=== PATIENT | female | born 1970 | race Caucasian/White ===

== ENCOUNTER 2023-04-29 21:07 | Outpatient (REF) | payer BC, SELFPAY ==
[2023-04-29 21:56] LABS: Anion Gap 10.3 mmol/L (3-11); BUN 16 mg/dL (7-18); CO2 25.7 mmol/L (21.0-32.0); CREATININE 0.8 mg/dL (0.55-1.02); Calcium 9.1 mg/dL (8.5-10.1); Chloride 106 mmol/L (98-107); Glucose 102 mg/dL (74-106); Potassium 3.7 mmol/L (3.5-5.1); Sodium 142 mmol/L (136-145)
== END 2023-04-29 21:08 | disposition home or self-care (01) ==
LOC: NCHCN 21:07
PROVIDERS: Visit Provider Nurse Practitioner Family
DX: I47.10 Supraventricular tachycardia, unspecified (principal)
CPT/HCPCS: 80048

== ENCOUNTER 2023-09-07 08:46 | Day surgery (SDC) | payer BC, SELFPAY ==
--- NOTE | 2023-09-06 11:12 | W.PM.DSUDISC ---
Date of service: 09/07/23 Time of Service: 11:22 Discharge Plan Disposition Patient Disposition: Home Condition: Good Discharge Details Reason For Visit: screening colonoscopy Attending Provider: Can Camacho Primary Care Provider: Miranda Hoyos Home Meds and New Rx's Prescriptions: Continued albuterol sulfate 90 mcg/actuation HFA aerosol inhaler 2 puff inhalation Q6H PRN buspirone 10 mg tablet 15 mg PO BID hydroxyzine HCl 10 mg tablet 10 mg PO QHS PRN metoprolol succinate 25 mg tablet extended release 24 hr 25 mg PO DAILY multivitamin Tablet 1 tab PO DAILY cholecalciferol (vitamin D3) 10 mcg (400 unit) capsule 10 mcg PO DAILY Discontinued bisacodyl [Dulcolax (bisacodyl)] 5 mg tablet,delayed release (DR/EC) 5 mg PO ONCE Qty: 4 0RF Rx Instructions: Colonoscopy Bowel Prep- Per Instructions polyethylene glycol 3350 17 gram/dose powder 238 g PO ONCE Qty: 238 0RF Rx Instructions: Colonoscopy Bowel Prep- Per Instructions Discharge Instructions Instructions: Colorectal Polyps (GEN) Additional Instructions: Suellen, we are able to complete your colonoscopy today without any difficulty. Everything went very smoothly. I hope it was a comfortable procedure for you. I did find 1 polyp, which I removed completely. I will take week or 2 for them to report the results of the analysis. And once I have that information, then I will use that to help determine the timing of your next colonoscopy. If you have any questions in the meantime, please do not hesitate to call or ask at any point. 1. If tolerated, consume a soft, low fiber diet for 1-2 days. 2[address] Do not drive, drink alcohol, operate machinery, make critical decisions, or do activities that require coordination or balance for 24 hours. 3. Because air was put into your colon during the procedure, expelling air from your rectum (passing gas or farting) is normal. 4. You may not have a bowel movement for 1-3 days because of the colonoscopy prep. This is normal. 5. Go directly to the emergency room if you notice any of the following: Develop chills (warm to touch), or if you have a thermometer and your temperature is above 101 Difficulty breathing or difficultly swallowing Persistent vomiting Severe abdominal pain, other than gas cramps Severe chest pain Black, tarry stools Any bleeding ? exceeding one tablespoon 6. Call your physician if the site where your intravenous was started becomes red, swollen, painful, and warm to touch. 7. Your physician has reviewed your pre-procedure medications. Please continue to take those medications as previously ordered. You will be given specific information/education regarding any changes to your medications before leaving. Activity:: Activity as Tolerated Diet:: As Tolerated Discharge Orders Discharge Orders: Discharge Order (Routine); Ordered 09/06/23 Ordered By: Can Camacho
--- NOTE | 2023-09-06 11:14 | COLE_ITS ---
Date of service: 09/07/23 Time of Service: 11:23 Colonoscopy Report Date of procedure: 09/07/23 Pre-op diagnosis general: screening colonoscopy Post-op diagnosis procedure note: other (Colon polyp) Procedure: colonoscopy Surgeon: Can Camacho Anesthesia Type: General:No Airway Estimated blood loss (mL): 5 Pathology: other (0.25 cm polyp at 20 cm) Complications: None Disposition: same day Indications: Suellen is a 53 year old woman who needs a screening colonoscopy Prep: Miralax/Dulcolax Procedure Start Time: :55 Procedure End Time: 11:18 Retraction Time: 10 Findings: 0.25 cm flat polyp at 20 cm from the anus Procedure Description: After the induction of monitored anesthetic care, and with the patient in left lateral decubitus position, I began by performing an external anorectal exam.? Perineum and skin were normal, as was the anal verge.? There was no evidence of external hemorrhoids.? Next, I performed a digital rectal exam.? I did not appreciate any abnormal findings.? Next, I advanced a colonoscope into the re ctal vault.? I performed retroflexion.? This was normal.? Using insufflation, I then advanced the colonoscope beyond the rectal folds and into the sigmoid colon before advancing towards the cecum.?The scope was noted to be in the cecum by identification of the ileocecal valve and appendiceal orifice.? I then began withdrawing the colonoscope using repeated irrigation as necessary for full evaluation of the colonic mucosa. ?Around 20 cm from the anal verge was a 0.25 cm flat polyp. This was removed with cold forceps without any issues. Once the scope was withdrawn to the level of the rectum, great care was taken to examine portions of the rectal folds.? Finally, the scope was withdrawn and the patient was brought to the same-day surgery recovery unit as the anesthetic wore off. ?The findings and instructions were shared with the patient prior to discharge. [place] Bowel Prep [place] Bowel Prep Right Colon: 3 Left Colon: 3 Transverse Colon: 3 Total Score: 9
[2023-09-07 09:27] VITALS: BP 108/62; PULSE 61; RESP 16; TEMP 36.4; O2SAT 97
[2023-09-07] MEDS: Lactated Ringers 1,000 ML 80 ML IV (09:41)
--- NOTE | 2023-09-07 09:50 | ANES.PREOP_ITS ---
General Info Date of Service Date Performed: 09/07/23 Height: 5 ft 6 in Weight: 65.5 kg Body Mass Index (BMI): 23.3 Surgical Procedure: Operation Date: 09/07/23 10:35 Proposed Procedure Side Surgeon ger Camacho MD Meds Allergies and Home Medications Allergies Allergy/AdvReac Type Severity Reaction Status Date / Time No Known Allergies Allergy Verified 09/07/23 09:23 Home Medication Medication Instructions Recorded albuterol sulfate 90 mcg/actuation 2 puff inhalation Q6H PRN 07/28/23 aerosol inhaler buspirone 10 mg tablet 15 mg PO BID 07/28/23 cholecalciferol (vitamin D3) 10 10 mcg PO DAILY 07/28/23 mcg (400 unit) capsule hydroxyzine HCl 10 mg tablet 10 mg PO QHS PRN 07/28/23 metoprolol succinate 25 mg 25 mg PO DAILY 07/28/23 tablet,extended release 24 hr multivitamin 1 tab PO DAILY 07/28/23 Current Visit Medications: Current Medications Generic Name Dose Route Start Last Admin Trade Name Freq PRN Reason Stop Dose Admin Hyoscyamine Sulfate 0.125 mg 09/06/23 11:15 Hyoscyamine 0.125 Mg Sl/Oral/Chew SL 10/06/23 11:14 DIRECTED PRN Ringer's Solution 1,000 mls @ 80 mls/hr 09/07/23 06:00 09/07/23 09:41 IV 09/07/23 23:59 80 mls/hr INFUSION MANJIT Administration IV Miscellaneous Supplies 1 each 09/07/23 06:00 Iv Access IV 09/07/23 23:59 DIRECTED MANJIT Ondansetron HCl 4 mg 09/06/23 11:15 Ondansetron 4 Mg/2 Ml Vial IVP 10/06/23 11:14 Q4H PRN PRN Nausea / Vomiting Sodium Chloride 0 ml 09/07/23 06:00 Normal Saline Flush 10 Ml Syr IV 09/07/23 23:59 PRN PRN Sodium Chloride 0 ml 09/07/23 06:00 Normal Saline 10 Ml Vial IJ 09/07/23 23:59 DIRECTED PRN Sterile Water 0 ml 09/07/23 06:00 Water,Injection,Sterile 10 Ml Vial IJ 09/07/23 23:59 DIRECTED PRN [facility] Medical History Medical History Chest pain Dyspnea History of palpitations Disorder of lung Hx Covid, stress related per patient Supraventricular tachycardia Anxiety Surgical History Surgical History History of elbow surgery right History of surgery on wrist right History of tubal ligation History of tonsillectomy Tobacco Smoking/Tobacco Use Status: Never Alcohol Alcohol Intake: current Alcohol intake frequency: a few times a month Alcohol type: wine Substance Use Substance use: Never Substance use type: does not use Vital Signs and Lab Results Vital Signs Most Recent Vital Signs in EMR: Most Recent Vital Signs Temp Pulse Resp BP Pulse Ox 36.4 C L 61 16 108/62 97 09/07/23 09:27 09/07/23 09:27 09/07/23 09:27 09/07/23 09:27 09/07/23 09:27 Lab Results Blood Type / Crossmatch: No Data to Display Complete Blood Count: No Data to Display Complete Metabolic Panel: No Data to Display Liver Function Panel: No Data to Display Coagulation Panel: No Data to Display Cardiac Panel: No Data to Display Arterial Blood Gas: No Data to Display Venous Blood Gas: No Data to Display Pancreas Panel: No Data to Display Thyroid Panel: No Data to Display Infectious Disease: No Data to Display Blood Cultures: No Data to Display Toxicology Panel: No Data to Display Anesthesia Assessment and Plan Anesthesia History Personal History: No History of Anesthesia Complications Family History: No Family History of Anesthesia Complications Exercise Tolerance Exercise Tolerance: Metabolic Equivalents>4 Cardiac & Pulmonary Exam Cardiac Exam: Normal S1/S2 Heart Sounds Pulmonary Exam: Clear Bilateral Breath Sounds Implantable Cardiac Device Does patient have a Pacemaker or an ICD?: No Airway Exam Known Difficult Airway: No Mallampati Class: 3 Mouth Opening: Normal (> 3cm) Thyromental Distance: Greater than 3 cm Neck Range of Motion: Full ROM Neck Circumference: Normal Teeth Condition: Normal Dentition ASA Classification ASA Score: ASA 2 Emergency Case?: No NPO Status NPO Status: NPO Clears >2 hours, Solids >8 hours Anesthesia Plan Resuscitation Status: Full Code Anesthesia Technique: General Anesthesia Airway Planned: Natural Airway Monitors Used: Standard Monitors Preoperative Comments:: 53 yo female for colo. Sig PMHx: palpitations/SVT (states had echo/etc, all unremarkable), anxiety, never smoker, occ EtOH.
[2023-09-07 09:52] VITALS: BMI 23.3
--- NOTE | 2023-09-07 11:16 | BOWEL_PTH ---
PATIENT: Suellen Membreno LOC: [facility] U#:[id number] AGE/SX: 53/F ROOM: RE09/07/[address]: Can Camacho MD : [id number] BED: DIS: 09/07/2023 SPEC #: [id number] RECD: 09/07/23 13:12 STATUS: JAUN RE #: [id number] BERTO: 09/07/23 11:[address]: Can Camacho DEPT: Surgical Specimen RECD BY: Cinthia Clark ENTERED: 09/07/23 13:13 SP TYPE: Bowel OTHR DR: Rusty Hoyos Tissues: 1 - BIOPSY BOWEL Procedures: GROSS AND MICRO LEVEL 4 Comments: [id number]
[2023-09-07 11:26] VITALS: BP 92/55; PULSE 57; RESP 16; TEMP 36.4; O2SAT 98
--- NOTE | 2023-09-07 11:36 | W.ANESPOSTOP ---
Postoperative Evaluation Date, Time and Location Date Performed: 09/07/23 Time Performed: 11:36 Patient Location: Day Surgery Unit Vital Signs Most Recent Imported Vital Signs: Most Recent Vital Signs Temp Pulse Resp BP Pulse Ox 36.4 C L 57 L 16 92/55 L 98 09/07/23 11:26 09/07/23 11:26 09/07/23 11:26 09/07/23 11:26 09/07/23 11:26 Pain Score Most Recent Pain Score: Most Recent Pain Score Pain Level 0 09/07/23 11:26 Assessment Mental Status: Awake (Alert & Oriented to Patient Baseline) Airway and Respiratory Function: Patent airway with normal (patient baseline) respiratory exam Cardiovascular Function: Hemodynamically Stable Hydration Status: Adequately Hydrated Nausea & Vomiting: No Nausea or Vomiting Pain: Pt. Denies Any Pain Peripheral Nerve Block: Patient did not receive a nerve block
[2023-09-07 11:52] VITALS: BP 92/62; PULSE 63; RESP 16; TEMP 36.5; O2SAT 98
== END 2023-09-07 11:55 | disposition home or self-care (01) ==
PROVIDERS: PCP Nurse Practitioner Family; Visit Provider Surgery
PROC: 0DJD8ZZ Inspection of Lower Intestinal Tract, Via Natural or Artificial Opening Endoscopic (ICD-10-PCS; CPT 45378; principal; 2023-09-07 10:30)
DX: Z12.11 Encounter for screening for malignant neoplasm of colon (principal); K63.5 Polyp of colon; R00.2 Palpitations; F41.9 Anxiety disorder, unspecified
CPT/HCPCS: 45380; 88305; J2001; J2704

== ENCOUNTER 2025-02-13 17:37 | Outpatient (REF) | payer BC, SELFPAY | END 2025-02-13 17:38 | disposition home or self-care (01) | LOC: NCHCN 17:37 | PROVIDERS: PCP Nurse Practitioner Family; Visit Provider Nurse Practitioner Family | DX: R82.90 Unspecified abnormal findings in urine (principal) | CPT/HCPCS: 87480; 87510; 87660 ==